=== PATIENT | female | born 1985 | race African-American/Black ===

== ENCOUNTER 2017-03-04 04:29 | Emergency (ER) | payer MEDICAID ==
[~2017-03-04 04:29] MED LIST: NIFE10 PO; PREN0.01 PO
[2017-03-04 04:34] VITALS: BP 129/58; PULSE 72; RESP 18; TEMP 97.8; O2SAT 100
[2017-03-04] MEDS ORDERED: KETOROLAC TROMETHAMINE 30 MG/ML (IVP) VIAL IV PUSH ONE (05:00)
[2017-03-04] MEDS ORDERED: ONDANSETRON HCL 4 MG/2 ML VIAL IV PUSH ONE (05:00)
[2017-03-04] MEDS ORDERED: SODIUM CHLOR 0.9% 1000 ML INJ 1,000 ML IV ONE (05:00)
[2017-03-04 05:22] VITALS: O2SAT 97
[2017-03-04 05:26] LABS: AUTOMATED NEUTROPHIL # 3.7 TH/MM3 (1.8-7.7); BASOPHIL % 0.3 % (0.0-2.0); EOSINOPHIL # 0.1 TH/MM3 (0-0.4); EOSINOPHIL % 2.4 % (0.0-4.0); HEMATOCRIT 35.4 % (35.0-46.0); HEMOGLOBIN 11.9 GM/DL (11.6-15.3); LYMPH % 28.9 % (9.0-44.0); LYMPHOCYTE # 1.8 TH/MM3 (1.0-4.8); MEAN CELL VOLUME 85.4 FL (80.0-100.0); MEAN CORPUSCULAR HEMOGLOBIN 28.8 PG (27.0-34.0); MEAN CORPUSCULAR HGB CONC 33.7 % (32.0-36.0); MEAN PLATELET VOLUME 7.6 FL (7.0-11.0); MONOCYTE # 0.5 TH/MM3 (0-0.9); NEUT % 60.4 % (16.0-70.0); PLATELET COUNT 326 TH/MM3 (150-450); RED BLOOD COUNT 4.14 MIL/MM3 (4.00-5.30); RED CELL DISTRIBUTION WIDTH 13.2 % (11.6-17.2); WHITE BLOOD COUNT 6.2 TH/MM3 (4.0-11.0)
--- NOTE | 2017-03-04 05:31 | PD ---
HPI Chief Complaint: Flank/Kidney Pain Time Seen by Provider: 04:52 Travel History International Travel<30 days: No Contact w/Intl Traveler<30days: No Traveled to known affect area: No History of Present Illness HPI This is a 31-year-old female with a previous history of right sided pneumococcus , presents today with clots of right sided flank pain with radiation to her right lower quadrant. Patient reports associated nausea vomiting. She states it started on Friday and this progressed. She denies any fevers, chills. She denies any dysuria or frequency. The patient denies any vaginal discharge or bleeding. There are no other complaints time my examination. PFSH Past Medical History Blood Disorders: No Cancer: No Cardiovascular Problems: No Diminished Hearing: No Endocrine: No Genitourinary: No Immune Disorder: No Musculoskeletal: No Neurologic: No Reproductive: Yes (OVARIAN CYSTS) Respiratory: No ?: Unknown LMP: irregular/not sure Ovarian Cysts: Yes Past Surgical History Gynecologic Surgery: Yes (for ovarian cysts) Social History Alcohol Use: No Tobacco Use: No Substance Use: No Allergies-Medications (Allergen,Severity, Reaction): Coded Allergies: No Known Allergies (Verified Adverse Reaction, Unknown, 03/04/17) Reported Meds & Prescriptions Reported Meds & Active Scripts Active Prochlorperazine Maleate 10 Mg Tab 10 Mg PO Q6H PRN Lorcet (Hydrocodone-Acetaminophen) 5-325 mg Tab 1 Tab PO Q6H PRN 10 Days Cipro (Ciprofloxacin HCl) 500 Mg Tab 500 Mg PO BID 10 Days Procardia (Nifedipine) 10 Mg Cap 10 Mg PO Q6 3 Days Reported Vit ( Plus) (Prenat Multivit/Mortar Carrier/Iron/Folic Ac) Tab 1 Tab PO DAILY Review of Systems Except as stated in HPI: all other systems reviewed are Neg General / Constitutional: No: Fever, Chills HENT: No: Headaches, Vertigo, Lightheadedness Cardiovascular: No: Chest Pain or Discomfort, Palpitations Respiratory: No: Cough, Shortness of Breath Gastrointestinal: Positive: Nausea, Vomiting, No: Diarrhea Genitourinary: Positive: Flank Pain (right), No: Frequency, Dysuria Musculoskeletal: Positive: Pain (right flank), No: Myalgias, Weakness Skin: No Rash, No Lesions Neurologic: No: Dizziness, Headache Physical Exam Narrative GENERAL: Well-developed well-nourished female in no acute respiratory distress SKIN: Focused skin assessment warm/dry. HEAD: Atraumatic. Normocephalic. EYES: Pupils equal and round. No scleral icterus. No injection or drainage. ENT: No nasal bleeding or discharge. Mucous membranes pink and moist. NECK: Trachea midline. No JVD. CARDIOVASCULAR: Regular rate and rhythm. No murmur appreciated. RESPIRATORY: No accessory muscle use. Clear to auscultation. Breath sounds equal bilaterally. GASTROINTESTINAL: Abdomen soft, non-tender, nondistended. No rebound or guarding. MUSCULOSKELETAL: No obvious deformities. No clubbing. No cyanosis. No edema. BACK: Subjective right sided CVA discomfort. NEUROLOGICAL: Awake and alert. No obvious cranial nerve deficits. Motor grossly within normal limits. Normal speech. PSYCHIATRIC: Appropriate mood and affect; insight and judgment normal. Data Data Last Documented VS Vital Signs Date Time Temp Pulse Resp B/P (MAP) Pulse Ox O2 Delivery O2 Flow Rate FiO2 03/04/17 05:22 97 03/04/17 04:34 97.8 72 18 Orders Orders Complete Blood Count With Diff (03/04/17 04:52) Comprehensive Metabolic Panel (03/04/17 04:52) Urinalysis - C+S If Indicated (03/04/17 04:52) Iv Access Insert/Monitor (03/04/17 04:52) Ecg Monitoring (03/04/17 04:52) Oximetry (03/04/17 04:52) Ed Urine Pregnancytest Poc (03/04/17 04:52) Ketorolac Inj (Toradol Inj) (03/04/17 05:00) Ondansetron Inj (Zofran Inj) (03/04/17 05:00) Sodium Chlor 0.9% 1000 Ml Inj (Ns 1000 M (03/04/17 05:00) Urine Culture (03/04/17 04:57) Ct Abd/Pel W/O Iv Contrast (03/04/17 06:16) Ceftriaxone Inj (Rocephin Inj) (03/04/17 06:30) Labs Laboratory Tests Test 03/04/17 04:57 White Blood Count 6.2 TH/MM3 Red Blood Count 4.14 MIL/MM3 Hemoglobin 11.9 GM/DL Hematocrit 35.4 % Mean Corpuscular Volume 85.4 FL Mean Corpuscular Hemoglobin 28.8 PG Mean Corpuscular Hemoglobin Concent 33.7 % Red Cell Distribution Width 13.2 % Platelet Count 326 TH/MM3 Mean Platelet Volume 7.6 FL Neutrophils (%) (Auto) 60.4 % Lymphocytes (%) (Auto) 28.9 % Monocytes (%) (Auto) 8.0 % Eosinophils (%) (Auto) 2.4 % Basophils (%) (Auto) 0.3 % Neutrophils # (Auto) 3.7 TH/MM3 Lymphocytes # (Auto) 1.8 TH/MM3 Monocytes # (Auto) 0.5 TH/MM3 Eosinophils # (Auto) 0.1 TH/MM3 Basophils # (Auto) 0.0 TH/MM3 CBC Comment DIFF FINAL Differential Comment Urine Color YELLOW Urine Turbidity HAZY Urine pH 7.5 Urine Specific [place] 1.019 Urine Protein 30 mg/dL Urine Glucose (UA) NEG mg/dL Urine Ketones NEG mg/dL Urine Occult Blood LARGE Urine Nitrite NEG Urine Bilirubin NEG Urine Urobilinogen 2.0 MG/DL Urine Leukocyte Esterase LARGE Urine RBC /hpf Urine WBC /hpf Urine WBC Clumps MOD Urine Squamous Epithelial Cells 8 /hpf Urine Renal Epithelial Cells <1 /hpf Urine Amorphous Sediment RARE Urine Mucus MANY /lpf Microscopic Urinalysis Comment CULTURE INDICATED Blood Urea Nitrogen 13 MG/DL Creatinine 0.68 MG/DL Random Glucose 85 MG/DL Total Protein 7.2 GM/DL Albumin 3.5 GM/DL Calcium Level 8.3 MG/DL Alkaline Phosphatase 54 U/L Aspartate Amino Transf (AST/SGOT) 14 U/L Alanine Aminotransferase (ALT/SGPT) 19 U/L Total Bilirubin 0.4 MG/DL Sodium Level 140 MEQ/L Potassium Level 3.3 MEQ/L Chloride Level 106 MEQ/L Carbon Dioxide Level 28.3 MEQ/L Anion Gap 6 MEQ/L Estimat Glomerular Filtration Rate 124 ML/MIN [facility] Medical Decision Making Medical Screen Exam Complete: Yes Emergency Medical Condition: Yes Differential Diagnosis Pyelonephritis versus right sided renal calculus versus appendicitis versus cholecystitis Narrative Course 31-year-old female with right sided flank pain. Patient also reports nausea vomiting. Patient does have a history of right sided renal colic is. The patient is afebrile here. She has a grossly infected urine. She'll be treated for pyelonephritis. She's been given 1 g of Rocephin I V times one dose. She' ll be discharged home with a prescription for Cipro for 10 days also Lortab for pain and Compazine for nausea vomiting. She is instructed to drink plenty of fluids. She states instructed to return she does any worsening symptoms. Diagnosis Primary Impression: right sided pyelonephritis Additional Impression: History of renal calculi Additional Instructions: Drink plenty of fluids. Return if feeling worse. Follow up with primary care physician. Med/Other Pt SpecificInfo: Prescription(s) given Scripts Prochlorperazine Maleate (Prochlorperazine Maleate) 10 Mg Tab 10 MG PO Q6H Y for NAUSEA OR VOMITING, #10 TAB 0 Refills Prov: Michel Lyons MD 03/04/17 Hydrocodone-Acetaminophen (Lorcet) 5-325 mg Tab 1 TAB PO Q6H Y for PAIN for 10 Days, #40 TAB 0 Refills Prov: Michel Lyons MD 03/04/17 Ciprofloxacin (Cipro) 500 Mg Tab 500 MG PO BID for Infection for 10 Days, #20 TAB 0 Refills Prov: Michel Lyons MD 03/04/17 Disposition: 01 DISCHARGE HOME Condition: Stable Michel Lyons MD Mar 04, 2017 05:31
[2017-03-04 05:35] LABS: AMORPHOUS SEDIMENT, URINE RARE; BILIRUBIN, URINE NEG (NEG); BLOOD, URINE LARGE (NEG); GLUCOSE,URINE NEG (NEG); KETONE, URINE NEG (NEG); MUCUS URINE MANY /lpf (OCC); NITRITE,URINE NEG (NEG); PH, URINE 7.5 (5.0-8.5); RENAL EPITHELIAL CELLS <1 /hpf; SQUAMOUS EPITHELIAL CELL URINE 8 /hpf (0-5); URINE COLOR YELLOW (YELLW/STRAW); URINE LEUKOCYTE ESTERASE LARGE (NEG); WHITE BLOOD CELL CLUMPS MOD
[2017-03-04 05:58] LABS: ALBUMIN 3.5 GM/DL (3.4-5.0); AST (GOT) 14 U/L (15-37); BICARBONATE 28.3 MEQ/L (21.0-32.0); BLOOD UREA NITROGEN 13 MG/DL (7-18); CALCIUM 8.3 MG/DL (8.5-10.1); CHLORIDE 106 MEQ/L (98-107); CREATININE 0.68 MG/DL (0.50-1.00); GLOMERULAR FILTRATION RATE 124 ML/MIN (>89); GLUCOSE,RANDOM 85 MG/DL (74-106); SODIUM (NA) 140 MEQ/L (136-145)
[2017-03-04 05:59] LABS: ALT (GPT) 19 U/L (10-53)
[2017-03-04 06:00] LABS: ALKALINE PHOSPHATASE 54 U/L (45-117); TOTAL BILIRUBIN ADULT 0.4 MG/DL (0.2-1.0); TOTAL PROTEIN 7.2 GM/DL (6.4-8.2)
[2017-03-04] MEDS ORDERED: cefTRIAXone INJ 1,000 MG in SODIUM CHLORIDE 0.9% INJ 100 ML IV ONE (06:30)
[2017-03-04] MEDS ORDERED: HYDR-3576 PO (06:57)
[2017-03-04] MEDS ORDERED: PROC10TA PO (06:57)
[2017-03-04] MEDS ORDERED: CIPR-9 PO (06:57)
[2017-03-04 07:17] VITALS: BP 131/72
--- NOTE | 2017-03-04 07:22 | RADRPT ---
EXAM DATE/TIME: 03/04/2017 06:26 [facility] COMPARISON: CT ABDOMEN & PELVIS W/O CONTRAST, February 10, 2012, 21:17. INDICATIONS : Right flank pain. ORAL CONTRAST: No oral contrast ingested. RADIATION DOSE: 4.73 CTDIvol (mGy) MEDICAL HISTORY : Ovarian cyst. SURGICAL HISTORY : None. ENCOUNTER: Initial ACUITY: 1 day PAIN SCALE: 8/10 LOCATION: Right flank TECHNIQUE: Volumetric scanning of the abdomen and pelvis was performed. Using automated exposure control and ad justment of the mA and/or kV according to patient size, radiation dose was kept as low as reasonably achievable to obtain optimal diagnostic quality images. DICOM format image data is available electro nically for review and comparison. FINDINGS: Lung bases are clear. Osseous structures are intact. Unenhanced appearance of the liver, gallbladder, spleen, kidneys, adrenal glands, pancreas, small bowel, large bowel are unremarkable. No adenopathy. No free fluid or free air. Uterus and adnexa are unremarkable. The right hemipelvis, there are 2 richard cifications best seen on coronal image 32 of 78 measuring up to 4 mm. On coronal images no definite s oft tissue density is seen to suggest a soft tissue rim sign which is typically seen with ureteral st ones. There is no hydronephrosis or hydroureter. There are in the differential diagnosis includes 2 d istal right ureteral stones versus phleboliths. There are not present in 2011. CONCLUSION: Probable phleboliths in the right pelvis, however 2 distal ureteral stones at the UVJ are difficult t o exclude though felt less likely. There is no evidence for hydronephrosis, hydroureter or perinephri c stranding. Addison Lopez MD on March 04, 2017 at 7:17 Board Certified Radiologist. This report was verified electronically.
== END 2017-03-04 07:35 | disposition home or self-care (01) ==
LOC: NEPE 04:29
DX: N12 Tubulo-interstitial nephritis, not specified as acute or chronic (principal); B95.7 Other staphylococcus as the cause of diseases classified elsewhere; Z87.442 Personal history of urinary calculi
CPT/HCPCS: 74176; 80053; 81001; 84703; 85025; 86403; 87077; 87086; 87186; 96374; 96375; 99285; J0696; J1885; J2405; J7030